=== PATIENT | male | born 1985 | race Caucasian/White ===

== ENCOUNTER 2018-06-17 11:33 | Observation (INO) | payer MEDICAID, OTHER ==
[~2018-06-17] VITALS: Ht 185.4 cm; Wt 158.9 kg
--- OUTSIDE RECORDS SUMMARY | 2018-06-17 11:37 | XMS REPORT | Continuity of Care Document ---
Demographics Preferred Language Unknown Marital Status Unknown Spiritism Affiliation Unknown Race Unknown Ethnic Group Unknown Author Organization Unknown Address Unknown Allergies There is no data. Medications There is no data. Problems There is no data. Procedures There is no data. Results Test Result Range Comprehensive Metabolic Panel - 05/19/18 10:08 Albumin 4.2 g/dL 3.6-5.1 ALP 66 U/L 35-130 ALT 41 U/L 6-45 Anion Gap 17 6-14 AST 23 U/L 2-40 BUN 13 mg/dL 5-25 Calcium 9.2 mg/dL 8.3-10.4 Chloride 106 mmol/L 95-114 CO2 19 mEq/L 22-33 Creat 0.84 mg/dL 0.50-1.50 eGFR 106 mL/min/1.73m2 >59 Globulin 2.2 g/dL 2.3-3.5 Glucose 101 mg/dL 70-110 Osmo 285 280-295 Potassium 4.1 mmol/L 3.5-5.3 Sodium 138 mmol/L 134-148 TBil 0.6 mg/dL 0.2-1.2 TP 6.4 g/dL 6.0-8.3 Holter Monitor 48 hour - 05/19/18 11:52 Holter Monitor 48 Hour Complete Encounters ACCT No. Visit Date/Time Discharge Status Pt. Type Provider Facility Loc./Unit Complaint [id number] 05/19/2018 09:37:00 Document Registration
[2018-06-17 11:45] VITALS: BP 130/78
--- NOTE | 2018-06-17 11:45 | NUR ---
JESSICA VELARDE admitted to room 413-1, with an admitting diagnosis of APPENDICITIS, on 06/17/18 from HOME via AMBULATORY, accompanied by MOTHER.JESSICA VELARDE introduced to surroundings, call light, bed controls, phone, TV, temperature control, lights, meal times, smoking policy, visitor policy, side rail policy, bathrooms and showers. Patient Rights given to patient in the handbook.JESSICA VELARDE verbalizes understanding that [facility] is not responsible for the loss or damage to any personal effects or valuables that are kept in the patients posession during their hospitalization. The following Patient Care Plans were discussed with the PT: Discharge Planning, PAIN CONTROL AND IV THERAPY AND IV ANTIBIOTIC TX,PRE-OP POST-OP, and TESTS AND PROCEDURES. JESSICA VELARDE verbalizes understanding of Interdisciplinary Patient Education. Patient and/or family were informed about the Rapid Response Team and its purpose.
[2018-06-17] MEDS ORDERED: ONDANSETRON 4 MG/2 ML (SDV) Z0FRAN IVP PRN (13:00)
[2018-06-17] MEDS ORDERED: CIPROFLOXACIN IV 400MG/200ML 200 ML IV ONE (13:12)
[2018-06-17] MEDS ORDERED: PHARMACY TO DOSE IV SCH (13:15)
[2018-06-17] MEDS: CIPROFLOXACIN IV 400MG/200ML 200 ML IV SCH ×2 (13:16→20:35)
[2018-06-17] MEDS ORDERED: METR-145 PO (14:14)
[2018-06-17] MEDS ORDERED: ONDA4TAB11 PO (14:14)
[2018-06-17] MEDS ORDERED: CIPR500T4 PO (14:14)
[2018-06-17] MEDS ORDERED: [UNRECOGNIZED DRUG - CODE] (14:14)
--- NOTE | 2018-06-17 14:36 | HISTORY AND PHYSICAL ---
DATE OF SERVICE: HISTORY OF PRESENT ILLNESS: The patient is a 32-year-old male, transferred over from [facility] due to acute appendicitis. This gentleman reports that starting Saturday night, which was two days ago, he developed some abdominal pain, which was not severe. Over time, this did worsen and he was seen in the Emergency Department yesterday night, which did show inflammation of the tip of the appendix, which was consistent with an early acute appendicitis. He does not report any nausea or vomiting. He did have some mild low grade fevers at night. 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 However, he has been seen at [facility] which is a hemophilia center and does have vials of factor VIII at home. We will also work on getting factor VIII available here and pre-infused before proceeding with surgery, which would be a diagnostic laparoscopy as well as laparoscopic appendectomy. PAST MEDICAL HISTORY: Hemophilia A. PAST SURGICAL HISTORY: Tonsillectomy, left knee arthroscopy. ALLERGIES: No known drug allergies. CURRENT MEDICATIONS: Factor VIII p.r.n. SOCIAL HISTORY: Negative smoke, social alcohol. FAMILY HISTORY: Father, sister, and child with hemophilia A. Father diabetes. VITAL SIGNS: Temperature is 98.2, blood pressure 130/78, pulse 78, respirations 16, and pulse ox 94% on room air. REVIEW OF SYSTEMS: Well-nourished male, currently in no acute distress. He is not experiencing any shortness of breath or difficulty breathing. No chest pain, palpitations, diaphoresis. No nausea, vomiting with pain in the right lower abdominal quadrant, which is tolerable. Last bowel movement was yesterday, which was normal. No diarrhea or constipation, no red blood per rectum, no dark tarry stools. Mild fevers last night, none currently. No recent inadvertent weight loss. All other review of systems is negative. PHYSICAL EXAMINATION: CHEST: Clear. Good breath sounds bilaterally. HEART: Regular, no murmurs. EXTREMITIES: No lower extremity edema, negative Homans sign. HEENT: No scleral icterus. NECK: No cervical lymphadenopathy. ABDOMEN: Soft, nondistended. There is pain in the right lower abdominal quadrant upon deep palpation with voluntary guarding, no rebound. SKIN: Warm, dry. ASSESSMENT AND PLAN: A 32-year-old male with early acute appendicitis with a history of hemophilia A factor VIII deficiency. We will proceed with a pre-transfusion of factor VIII and then proceed with diagnostic laparoscopy as well as laparoscopic appendectomy. We will also keep him on additional two days to continue infusion and then have him finish the rest of his home factor VIII, which he already has at home. He also already have a Groshong pump catheter in the left subclavian for IV access. Job ID: [id number] DocumentID: [id number] Dictated Date: 06/17/2018 12:49:15 Forestry Laborer Date: 06/17/2018 14:35:57 Dictated By: DANIELLE CHANDRA MD [facility]
[2018-06-17] MEDS: metroNIDAZOLE 500MG/100ML IVPB 100 ML IV SCH ×2 (14:49→21:35)
--- NOTE | 2018-06-17 14:52 | NUR ---
PER TELEPHONE DISCUSSION AND ORDER WITH DR CHANDRA 50% FACTOR REPLACEMENT IS ~ 3700 UNITS. PHARMACY ORDERED IN KOGENATE 6 VIALS -3,3390 AND 6 VIALS- 289 UNIT, AND CAN ORDER MORE WITH 24 HOURS NOTICE. WILL FOLLOW UP WITH DR CHANDRA 06/18 TO DETERMINE NEED/DURATION AND AVAILABILITY OF FACTOR VIII.
[2018-06-17 15:56] VITALS: BP 128/80
--- NOTE | 2018-06-17 18:15 | NUR ---
DIANN VELARDEDorita Peterson admitted to room 413-1, with an admitting diagnosis of ACUTE APPENDICITIS, on 06/17/18 from HOME VIA AMBULATION, accompanied by .JESSICA VELARDE introduced to surroundings, call light, bed controls, phone, TV, temperature control, lights, meal times, smoking policy, visitor policy, side rail policy, bathrooms and showers. Patient Rights given to patient in the handbook. JESSICA VELARDE verbalizes understanding that [facility] is not responsible for the loss or damage to any personal effects or valuables that are kept in the patients posession during their hospitalization. JESSICA VELARDE verbalizes understanding of Interdisciplinary Patient Education. Patient and/or family were informed about the Rapid Response Team and its purpose. Addendum: 06/17/18 at 1817 by SHAHRAM WALLACE RN ELTON---[phone]
[2018-06-17] MEDS: HYDROcodone/APAP 7.5 MG/325 MG (LORTAB, LORCET PLUS) TABLET PO PRN (19:39)
[2018-06-17 20:22] VITALS: BP 115/75
[2018-06-18 00:11] VITALS: BP 122/75
[2018-06-18 04:49] VITALS: BP 117/68
[2018-06-18] MEDS: HYDROcodone/APAP 7.5 MG/325 MG (LORTAB, LORCET PLUS) TABLET PO PRN ×2 (07:44→17:37)
[2018-06-18] MEDS: CIPROFLOXACIN IV 400MG/200ML 200 ML IV SCH ×2 (08:11→21:47)
[2018-06-18] MEDS: metroNIDAZOLE 500MG/100ML IVPB 100 ML IV SCH ×2 (08:11→20:47)
[2018-06-18 08:14] LABS: HEMOGLOBIN 14.4 G/DL (13.3-17.7); MEAN PLATELET VOLUME 9.7 FL (7.4-10.4); RED CELL DISTRIBUTION WIDTH 12.7 % (10.0-14.5); WHITE BLOOD COUNT 7.8 10^3/uL (4.3-11.0)
[2018-06-18 08:42] VITALS: BP 119/70
--- NOTE | 2018-06-18 10:36 | Progress Note-Pre Operative ---
Pre-Operative Progress Note H&P Reviewed The H&P was reviewed, patient examined and no changes noted. Date Seen by Provider: June 18, 2018 Time Seen by Provider: 10:30 Date H&P Reviewed: June 18, 2018 Time H&P Reviewed: 10:30 Pre-Operative Diagnosis: acute appendicitis, hemophilia A DANIELLE CHANDRA MD June 18, 2018 10:36
[2018-06-18] MEDS ORDERED: ANTIHEMOPHILIC FACTOR RECOMBINANT IV SCH (11:00)
[2018-06-18 11:58] VITALS: BP 114/77
--- NOTE | 2018-06-18 13:56 | NUR ---
UPDATED DR CHANDRA WITH CURRENT FACTOR 8 SUPPLY. WE WERE ABLE TO GET KOGENATE FS 3,000 UNIT VIALS #6 (CONTAINING 3390 IU) AND KOGENATE FS 250 UNIT VIALS # 6 (CONTAINING 289 IU). FIRST DOSE WILL BE 100% FACTOR 8 (7358 IU) (GIVEN ABOUT 2 HOURS PRIOR TO SURGERY) AND THEN 50% FACTOR 8 (3679 IU) Q 12 HOURS.
--- NOTE | 2018-06-18 15:59 | Progress Note (SOAP) ---
Subjective Date Seen by a Provider: June 18, 2018 Time Seen by a Provider: 15:45 Subjective/Events-last exam doing well. pain RLQ however tolerable with pain meds. no fever/chills. tolerating diet. have adequate amounts of factor 8 for 100% preop and for postop. Objective Exam Vital Signs Date Time Temp Pulse Resp B/P (MAP) Pulse Ox O2 Delivery O2 Flow Rate FiO2 06/18/18 11:58 98.0 75 20 114/77 (89) 96 Room Air 06/18/18 09:00 Room Air 06/18/18 08:42 97.8 76 20 119/70 (86) 94 Room Air 06/18/18 04:49 98.3 69 18 117/68 (84) 96 Room Air 06/18/18 00:11 97.6 59 18 122/75 (91) 94 Room Air 06/17/18 21:00 Room Air 06/17/18 20:22 98.1 78 20 115/75 (88) 97 Room Air 06/17/18 15:56 98.0 79 20 128/80 (96) 97 Room Air I & O 06/18/18 07:00 Intake Total 2249 ml Output Total 750 ml Balance 1499 ml Capillary Refill : General Appearance: No Apparent Distress HEENT: PERRL/EOMI Neck: Full Range of Motion Respiratory: Chest Non Tender, Lungs Clear, Normal Breath Sounds Cardiovascular: Regular Rate, Rhythm Gastrointestinal: normal bowel sounds, soft, tenderness Extremity: Normal Capillary Refill Neurologic/Psychiatric: Alert, Oriented x3 Skin: Normal Color Lymphatic: No Adenopathy Results Lab Laboratory Tests 06/18/18 07:55: White Blood Count 7.8, Red Blood Count 4.97, Hemoglobin 14.4, Hematocrit 43, Mean Corpuscular Volume 87, Mean Corpuscular Hemoglobin 29, Mean Corpuscular Hemoglobin Concent 34, Red Cell Distribution Width 12.7, Platelet Count 190, Mean Platelet Volume 9.7 Assessment/Plan Assessment/Plan Assess & Plan/Chief Complaint acute appendicitis with hx hemophilia A. will get preop values to 100% then post-op 50%. patient also has some for home for home use. lap appy in am tomorrow. Clinical Quality Measures DVT/VTE Risk/Contraindication: Risk Factor Score Per Nursin RFS Level Per Nursing on Admit: 3=High DANIELLE CHANDRA MD June 18, 2018 15:58
[2018-06-18 16:01] VITALS: BP 139/82
[2018-06-18] MEDS: fentaNYL INJECTION 100 MCG/2 ML AMP IVP PRN (17:37)
[2018-06-19] VITALS (9 sets, daily range): BP systolic 103–211; BP diastolic 49–79
[2018-06-19] MEDS: HYDROcodone/APAP 7.5 MG/325 MG (LORTAB, LORCET PLUS) TABLET PO PRN ×2 (02:17→18:29)
[2018-06-19] MEDS: CIPROFLOXACIN IV 400MG/200ML 200 ML IV SCH ×2 (08:20→20:44)
[2018-06-19] MEDS: fentaNYL INJECTION 100 MCG/2 ML AMP IVP PRN ×4 (08:20→20:52)
[2018-06-19] MEDS: metroNIDAZOLE 500MG/100ML IVPB 100 ML IV SCH ×2 (08:20→20:44)
[2018-06-19] MEDS ORDERED: DEXAMETHASONE 10 MG/ML (DECADRON) 1 ML VIAL ONE (11:01)
[2018-06-19] MEDS ORDERED: ONDANSETRON 4 MG/2 ML (SDV) Z0FRAN ONE (11:01)
[2018-06-19] MEDS ORDERED: fentaNYL INJECTION 100 MCG/2 ML AMP ONE ×2 (11:01→14:11)
[2018-06-19] MEDS ORDERED: SUCCINYLCHOLINE INJ 100 MG/5 ML SYR ONE (11:01)
[2018-06-19] MEDS ORDERED: proPOfol 200 MG/20 ML (DIPRIVAN) VIAL IV ONE (11:01)
[2018-06-19] MEDS ORDERED: LIDOCAINE PF 2% 5 ML (XYLOCAINE) VIAL ONE (11:01)
[2018-06-19] MEDS ORDERED: MIDAZOLAM 2 MG/2 ML (VERSED) VIAL ONE (11:01)
[2018-06-19] MEDS ORDERED: ROCURONIUM 10 MG/ML 5 ML SYRINGE IV ONE ×2 (11:01→14:23)
[2018-06-19] MEDS ORDERED: ANTIHEMOPHILIC FACTOR IV NR ×2 (12:00)
[2018-06-19] MEDS ORDERED: BUP/EPI 0.5% 1:200,000 (SENSORCAINE) 30 ML VIAL ONE (12:21)
[2018-06-19] MEDS ORDERED: ceFAZolin INJECTION 1,000 MG VIAL IV ONE (12:45)
[2018-06-19] MEDS ORDERED: ceFAZolin INJECTION 2,000 MG ONE (12:55)
[2018-06-19] MEDS ORDERED: [UNRECOGNIZED DRUG - REMARK] IV ONE (13:12)
[2018-06-19] MEDS ORDERED: [UNRECOGNIZED DRUG - REMARK] IV ONE (13:12)
[2018-06-19] MEDS: LACTATED RINGERS 1,000 ML IV PRN ×2 (13:24→15:24)
[2018-06-19] MEDS ORDERED: SEVOFLURANE (ULTANE) 15 ML INHAL SOLN ONE (13:43)
[2018-06-19] MEDS ORDERED: NEOSTIGMINE 1 MG/ML 5 ML SYRINGE ONE (14:32)
[2018-06-19] MEDS ORDERED: GLYCOPYRROLATE 0.2 MG/ML (ROBINUL) 2 ML VIAL ONE (14:32)
--- NOTE | 2018-06-19 14:35 | Progress Note-Post Operative ---
Post-Operative Progess Note Surgeon (s)/Chemist Helper (s) Surgeon DANIELLE CHANDRA MD Chemist Helper: amandeep woo FAMILY PRACTICE PHYSICIAN ASSISTANT Pre-Operative Diagnosis acute appendicitis, hemophilia A Post-Operative Diagnosis same Procedure & Operative Findings Date of Procedure 06/19/18 Procedure Performed/Findings laparoscopic appendectomy. Anesthesia Type GET Estimated Blood Loss Estimated blood loss (mL): minimal Specimens/Packing Specimens Removed appendix DANIELLE CHANDRA MD June 19, 2018 14:35
[2018-06-19] MEDS ORDERED: ONDANSETRON 4 MG/2 ML (SDV) Z0FRAN IVP PRN (14:45)
[2018-06-19] MEDS ORDERED: HYDROmorphone 2 MG/ML VIAL (DILAUDID) IV ONE (14:45)
[2018-06-19] MEDS ORDERED: HYDR-34 PO (14:46)
--- NOTE | 2018-06-19 14:47 | Discharge Inst-Surgical ---
D/C Lap Instructions-PRATEEK New, Converted, or Re-Newed RX: RX on Chart Follow Up Appt in 2 weeks Activity as tolerated No driving for 24 hours No [address] while on pain medications administer home factor 8 doses remaining at home(2 vials) Incentive Spirometry use every 2 hours while awake Regular Diet Symptoms to Report: Fever over 101 degree F, Nausea/Vomiting Infection Signs and Symptoms to report: Increased redness, Foul odor of wound, Increased drainage Bathing instructions: May shower Operative Area Clean/Dry; Keep incision clean/dry If any problems/questions: Contact your physician or go to Emergency Room DANIELLE CHANDRA MD June 19, 2018 14:47
[2018-06-19] MEDS ORDERED: HYDROmorphone 2 MG/ML VIAL (DILAUDID) ONE (14:51)
--- NOTE | 2018-06-19 16:55 | Anesthesia-General Post-Op ---
General Patient Condition Mental Status/LOC: Same as Preop Cardiovascular: Satisfactory Nausea/Vomiting: Absent Respiratory: Satisfactory Pain: Controlled Complications: Absent Post Op Complications Complications None Follow Up Care/Instructions Patient Instructions None needed. Anesthesia/Patient Condition Patient Condition Patient is doing well, no complaints, stable vital signs, no apparent adverse anesthesia problems. No complications reported per nursing. DAVID GOMEZ CRNA June 19, 2018 16:54
--- NOTE | 2018-06-19 19:30 | OPERATIVE REPORT ---
DATE OF SERVICE: 06/19/2018 PREOPERATIVE DIAGNOSIS: Acute appendicitis with a history of hemophilia A. POSTOPERATIVE DIAGNOSIS: Acute appendicitis with a history of hemophilia A. PROCEDURE: Laparoscopic appendectomy. SURGEON: Danielle Chandra MD ANESTHESIA: General endotracheal. ESTIMATED BLOOD LOSS: Minimal. FINDINGS: Inflamed appendix, no perforation. DISPOSITION: The patient tolerated the procedure well. INDICATIONS: The patient is a 32-year-old male, transferred over from [facility] due to acute appendicitis. This gentleman reported developing pain approximately 5 days ago; however, the pain worsened over time. He was seen in the Emergency Department where inflammation of the tip of the appendix was identified on CT scan consistent with an early acute appendicitis. He did not report any nausea, vomiting; however, he states that he did have some mild low-grade fevers the night before admission. This gentleman does have a history of hemophilia A and he is factor VIII deficient. He has been seen at [facility] for hemophilia clinic and does have also a factor VIII at home to be taken on an as needed basis. Before proceeding with surgery today, we proceeded with replenish factor VIII to 100%. We will also continue to observe him and continue with 50% factor VIII levels for the next 48 hours. DESCRIPTION OF PROCEDURE: The patient was brought to the operating room, laid supine on the operating table. Again, a factor VIII concentrate was given two hours preoperatively to 100% factor VIII serum levels. The patient was then laid supine on the table and after adequate IV pain and sedative medications, general endotracheal intubation. The abdomen was soft, prepped and draped in standard surgical fashion. A 0.5% Marcaine with epinephrine was used to anesthetize the overlying skin in the left upper abdominal quadrant and a transverse skin incision made using 15 blade. An 0 silk suture was applied to the medial aspect of incision for traction and a Veress needle inserted with a low opening pressure of 0 mmHg and the abdomen was insufflated to 15 mmHg pressure. Veress needle removed and a 5 mm Xcel trocar placed followed by a 5 mm 45-degree angle laparoscope visualizing the peritoneal cavity. A 4-quadrant abdominal exploration was performed. There was acute appendicitis as well as inflammation of the mesoappendix. However, no perforation identified. Under direct visualization, we then proceeded to place a supraumbilical 10 mm port after the skin and peritoneal lining were anesthetized using 0.5% Marcaine with epinephrine and a transverse skin incision made using a 15 blade. In a similar manner, a suprapubic 5 mm port was placed. The patient was then placed in Trendelenburg position as well as plane right side up, left side down. The appendix was then dissected out using blunt dissection as well as electrocautery on the hook instrument. A window was then created between the base of the appendix as well as the mesoappendix using a [place] dissector. The appendix was then stapled and transected at the cecal base using a PAULINE 45 mm stapler with a 2.5 mm thickness load. In a similar manner, the mesoappendix was stapled and transected. Good hemostasis was observed. This area was irrigated and suctioned out. The appendix was removed through the 10 mm port site using an EndoCatch bag. A 10 mm port site fascia and peritoneum were then closed under direct visualization using a Epi-Tara device and 0 Vicryl suture. The abdomen was desufflated and the remaining ports removed. All skin incisions were closed using 4-0 Monocryl running subcuticular sutures. Wounds were then cleaned and covered with Dermabond. The patient tolerated the procedure well. We will continue with postoperative factor VIII concentrate for approximately 48 hours after the procedure and also proceed with clinical monitoring. We will also start IV and oral pain medication as well as a clear liquid diet and advance diet as tolerated. Job ID: [id number] DocumentID: [id number] Dictated Date: 06/19/2018 14:44:12 Assistant Professor Of Chemistry Date: 06/19/2018 19:29:38 Dictated By: DANIELLE CHANDRA MD MTDD
[2018-06-19] MEDS ORDERED: [UNRECOGNIZED DRUG - REMARK] IV SCH (23:00)
[2018-06-19] MEDS ORDERED: ANTIHEMOPHILIC FACTOR IV SCH ×2 (23:00)
[2018-06-19] MEDS ORDERED: [UNRECOGNIZED DRUG - REMARK] IV SCH (23:00)
[2018-06-20] VITALS: BP 124/66
[2018-06-20 04:30] VITALS: BP 135/88
[2018-06-20] MEDS: HYDROcodone/APAP 7.5 MG/325 MG (LORTAB, LORCET PLUS) TABLET PO PRN ×3 (04:52→15:56)
[2018-06-20 08:00] VITALS: BP 124/61
[2018-06-20] MEDS: metroNIDAZOLE 500MG/100ML IVPB 100 ML IV SCH (08:56)
[2018-06-20] MEDS: CIPROFLOXACIN IV 400MG/200ML 200 ML IV SCH (08:56)
[2018-06-20] MEDS: [UNRECOGNIZED DRUG - REMARK] IV SCH ×2 (10:18→16:43)
[2018-06-20] MEDS: [UNRECOGNIZED DRUG - REMARK] IV SCH ×2 (10:19→16:43)
[2018-06-20 15:54] VITALS: BP 148/65
--- NOTE | 2018-06-20 15:59 | Progress Note (SOAP) ---
Subjective Date Seen by a Provider: June 20, 2018 Time Seen by a Provider: 09:00 Subjective/Events-last exam doing well. pain controlled. ambulating well. no signs clinical bleed. will await pm dose of factor 8 then patient will finish out at home for a total 48hrs. Objective Exam Vital Signs Date Time Temp Pulse Resp B/P (MAP) Pulse Ox O2 Delivery O2 Flow Rate FiO2 06/20/18 08:00 98.2 65 18 124/61 (82) 95 Room Air 06/20/18 08:00 Room Air 06/20/18 04:30 98.5 73 20 135/88 (104) 97 Room Air 06/20/18 00:00 98.1 81 18 124/66 (85) 96 Room Air 06/19/18 20:00 96 Room Air 06/19/18 16:46 98.5 77 16 131/79 (96) 93 Nasal Cannula 3.00 I & O 06/20/18 06:59 Intake Total 1980 ml Output Total 700 ml Balance 1280 ml Capillary Refill : General Appearance: No Apparent Distress HEENT: PERRL/EOMI Neck: Full Range of Motion Respiratory: Chest Non Tender, Lungs Clear, Normal Breath Sounds Cardiovascular: Regular Rate, Rhythm Gastrointestinal: normal bowel sounds, soft Extremity: Normal Capillary Refill Neurologic/Psychiatric: Alert, Oriented x3 Skin: Normal Color Lymphatic: No Adenopathy Results Lab Microbiology 06/17/18 MRSA Screen - Final, Complete MRSA not isolated Assessment/Plan Assessment/Plan Assess & Plan/Chief Complaint acute appendicitis with hx hemophilia A. will get preop values to 100% then post-op 50%. patient also has some for home for home use. s/p lap appy. doing well. will give pm dose factor 8 then d/c home and have patient finish out home dose for total post-op approx 48hrs. Clinical Quality Measures DVT/VTE Risk/Contraindication: Risk Factor Score Per Nursin RFS Level Per Nursing on Admit: 3=High DANIELLE CHANDRA MD June 20, 2018 15:59
--- NOTE | 2018-06-20 17:20 | NUR ---
PT DISCHARGED AT THIS TIME. DISCHARGE INSTRUCTIONS GONE OVER WITH PT AND MOTHER AT BEDSIDE. WRITTEN PRESCRIPTION GIVEN TO PT. LEFT CHEST PORT LEFT IN PLACED, APPROVED BY DR CHANDRA. PT MOTHER WILL REMOVE IN AM AFTER FINAL DOSE OF FACTOR 8. STABLE AT TIME OF DISCHARGE. PT GIVEN INSTRUCTIONS ON HOW TO USE INCENTIVE SPIROMETER.
[2018-06-20 17:31] VITALS: BP 148/65
== END 2018-06-20 17:25 | disposition home or self-care (01) ==
LOC: 4TH 11:33
PROVIDERS: ADMIT Surgery; ATTEND Surgery
DX: K35.80 Unspecified acute appendicitis (principal); D66 Hereditary factor VIII deficiency; Z11.2 Encounter for screening for other bacterial diseases
CPT/HCPCS: 36415; 85027; 87081